=== PATIENT | male | born 1960 | race Caucasian/White ===

== ENCOUNTER 2018-03-29 12:30 | Emergency (ER) | payer OTHER ==
[~2018-03-29] VITALS: Ht 167.6 cm; Wt 76.0 kg
[2018-03-29 12:40] VITALS: BP 139/81
== END 2018-03-29 13:42 | disposition home or self-care (01) ==
LOC: ED 13:36
DX: S60.212A Contusion of left wrist, initial encounter (principal); W01.0XXA Fall on same level from slipping, tripping and stumbling without subsequent striking against object, initial encounter; Y93.89 Activity, other specified; Y92.69 Other specified industrial and construction area as the place of occurrence of the external cause; Y99.9 Unspecified external cause status
CPT/HCPCS: 99283